=== PATIENT | female | born 1945 | race African-American/Black ===

== ENCOUNTER 2016-10-22 14:49 | Emergency (ER) | payer MEDICARE, OTHER ==
[2016-10-22] MEDS ORDERED: DUONEB INH ONE ×2 (16:00)
[2016-10-22] MEDS ORDERED: PREDNISONE 10 MG TAB ONE (16:02)
[2016-10-22] MEDS ORDERED: PREDNISONE 50 MG TAB ONE (16:02)
== END 2016-10-22 17:17 | disposition home or self-care (01) ==
LOC: ER 14:49
CPT/HCPCS: 71020 ×2; 94640 ×2; 99283; J7512